=== PATIENT | female | born 1985 | race Caucasian/White ===

== ENCOUNTER 2019-08-10 21:36 | Emergency (ER) | payer MEDICAID ==
[~2019-08-10] VITALS: Ht 154.9 cm; Wt 56.7 kg
--- NOTE | 2019-08-10 22:00 | NUR ---
PT BIB SELF C/O HEADAHCE SINCE THIS MORNING (TOOK ADVIL 400MG WITHOUT RELIEF) EPIGASTRIC PAIN X4 HRS. PT AMBULATORY. NAD NOTED. RESP EVEN AND UNLABORED. PT ON MONITOR IN BED 2 WITH FRIEND AT BEDSIDE. WILL CONTINUE TO MONITOR.
--- NOTE | 2019-08-10 22:18 | NUR ---
BLOOD DRAWN AND GIVEN TO LAB
[2019-08-10 22:21] LABS: BASOPHILS # (AUTO) 0.1 /CMM (0.0-0.2); EOSINOPHILS % (AUTO) 1.7 % (0.0-6.0); HEMATOCRIT 32 % (33-45); LYMPHOCYTES # (AUTO) 2.3 /CMM (0.8-4.8); LYMPHOCYTES % (AUTO) 36.5 % (20.0-44.0); MEAN CORPUSCULAR HGB CONC 34 g/dl (31.0-36.0); MEAN CORPUSCULAR VOLUME 89 fL (82-100); MONOCYTES # (AUTO) 0.5 /CMM (0.1-1.30); MONOCYTES % (AUTO) 7.5 % (2.0-12.0); NEUTROPHILS # (AUTO) 3.4 /CMM (1.8-8.9); NEUTROPHILS % (AUTO) 53.3 % (43.0-81.0); PLATELET COUNT (AUTO) 249 /CMM (150-450); RED BLOOD CELL COUNT(AUTO) 3.62 MIL/uL (4.0-5.2); WHITE BLOOD COUNT (AUTO) 6.4 K/uL (4.3-11.0)
[2019-08-10 22:28] LABS: CALCIUM, SERUM 9.3 mg/dL (8.5-10.1); CREATININE 0.7 mg/dL (0.6-1.3)
[2019-08-10] MEDS ORDERED: KETOROLAC TROMETHAMINE INJ 30 MG/ML VIAL IV ONE (22:30)
[2019-08-10] MEDS ORDERED: PROCHLORPERAZINE EDISYLATE 10 MG/2 ML VIAL IVP ONE (22:30)
[2019-08-10] MEDS ORDERED: IV NS 0.9% 1,000 ML BAG IV ONE (22:30)
[2019-08-10] MEDS ORDERED: diphenhydrAMINE HCL 50 MG/ML VIAL IV ONE (22:30)
[2019-08-10 22:33] LABS: ALBUMIN 3.8 g/dL (3.4-5.0); BILIRUBIN,DIRECT 0.1 mg/dL (0.0-0.2); BILIRUBIN,TOTAL 0.2 mg/dL (0.2-1.0); TOTAL PROTEIN, SERUM 7.8 g/dL (6.4-8.2)
[2019-08-10] MEDS ORDERED: PROCHLORPERAZINE EDISYLATE 10 MG/2 ML VIAL ONE (22:41)
[2019-08-10] MEDS ORDERED: KETOROLAC TROMETHAMINE INJ 30 MG/ML VIAL ONE (22:41)
[2019-08-10] MEDS ORDERED: diphenhydrAMINE HCL 50 MG/ML VIAL ONE (22:41)
[2019-08-10 23:08] VITALS: BP 117/75
--- NOTE | 2019-08-10 23:08 | NUR ---
RADIOLOGY AT BEDSIDE FOR XRAY
--- NOTE | 2019-08-11 00:21 | NUR ---
IV removed. Catheter intact and site benign. Pressure and 4x4 applied to site. No bleeding noted.Patient discharged to home in stable condition. Written and verbal after care instructions given. Patient verbalizes understanding of instruction. PT AMBULATORY WITH STEADY GAIT.
== END 2019-08-11 00:22 | disposition home or self-care (01) ==
LOC: ER 21:39
DX: R51 Headache (principal); R10.13 Epigastric pain; D64.9 Anemia, unspecified
CPT/HCPCS: 36415; 71045; 80048; 80076; 83690; 84703; 85025; 96374; 96375; 99284; J0780; J1200; J1885; J7030

== ENCOUNTER 2021-10-25 15:33 | Emergency (ER) | payer MEDICAID ==
[~2021-10-25] VITALS: Ht 157.5 cm; Wt 56.7 kg
[2021-10-25 15:54] VITALS: BP 119/71
[2021-10-25] MEDS ORDERED: IBUP-1955 PO (16:03)
--- NOTE | 2021-10-25 16:11 | NUR ---
Patient discharged to home in stable condition. Written and verbal after care instructions given. Patient verbalizes understanding of instruction.
== END 2021-10-25 16:11 | disposition home or self-care (01) ==
LOC: ER 15:35
DX: S62.606A Fracture of unspecified phalanx of right little finger, initial encounter for closed fracture (principal); W01.0XXA Fall on same level from slipping, tripping and stumbling without subsequent striking against object, initial encounter; Y93.89 Activity, other specified; Y92.89 Other specified places as the place of occurrence of the external cause; Y99.8 Other external cause status

== ENCOUNTER 2021-11-15 16:51 | Emergency (ER) | payer MEDICAID ==
[~2021-11-15] VITALS: Ht 157.5 cm; Wt 56.7 kg
[~2021-11-15 16:51] MED LIST: IBUP-1955 PO
--- NOTE | 2021-11-15 17:29 | NUR ---
TO ER BED 18, C/O HEADACHE X 3 DAYS, TESTED (+) TO COVID 19 1 WEEK AGO, DENIES SOB, AAOX3, BREATHING EVEN AND NON LABORED, AWAITING MD WEN
[2021-11-15] MEDS ORDERED: KETOROLAC TROMETHAMINE INJ 30 MG/ML VIAL IV ONE (18:30)
[2021-11-15] MEDS ORDERED: IV NS 0.9% 1,000 ML BAG IV ONE (18:30)
[2021-11-15] MEDS ORDERED: diphenhydrAMINE HCL 50 MG/ML VIAL IV ONE (18:30)
[2021-11-15] MEDS ORDERED: METOCLOPRAMIDE HCL 10 MG/2 ML VIAL IV ONE (18:30)
[2021-11-15] MEDS ORDERED: diphenhydrAMINE HCL 50 MG/ML VIAL ONE (18:40)
--- NOTE | 2021-11-15 18:40 | NUR ---
SALINE LOCK ESTABLISHED AND BLOOD DRAWN
--- NOTE | 2021-11-15 18:40 | NUR ---
SALINE LOCK ESTABLISHED AND BLOOD DRAWN
[2021-11-15] MEDS ORDERED: KETOROLAC TROMETHAMINE 15 MG/ML VIAL ONE (18:41)
[2021-11-15] MEDS ORDERED: METOCLOPRAMIDE HCL 10 MG/2 ML VIAL ONE (18:41)
--- NOTE | 2021-11-15 18:45 | NUR ---
URINE COLLECTED AND SENT TO LAB
--- NOTE | 2021-11-15 18:45 | NUR ---
URINE COLLECTED AND SENT TO LAB
--- NOTE | 2021-11-15 20:05 | NUR ---
FOLLOWED UP WITH LAB. BLOOD STILL BEING IN PROCESS
--- NOTE | 2021-11-15 20:05 | NUR ---
FOLLOWED UP WITH LAB. BLOOD STILL BEING IN PROCESS
[2021-11-15 20:12] LABS: BILIRUBIN,URINE NEGATIVE (NEGATIVE); COLOR,URINE YELLOW (YELLOW); LEUKOCYTE ESTERASE ,URINE NEGATIVE (NEGATIVE); NITRITE, URINE NEGATIVE (NEGATIVE); PH,URINE 6.5 (5.0-8.0); PROTEIN,URINE NEGATIVE (NEGATIVE); UGLUCOSE NEGATIVE (NEGATIVE); UROBILINOGEN,URINE 0.2 EU/dL (0.2)
[2021-11-15 20:16] LABS: CALCIUM, SERUM 9.1 mg/dL (8.5-10.1); CREATININE 0.7 mg/dL (0.6-1.3); POTASSIUM 3.6 mmol/L (3.5-5.1)
--- NOTE | 2021-11-15 20:29 | NUR ---
Patient does not wish to proceed with medical care recommended by Dr. Smith. Patient given information related to possible complications, up to and including , which could occur as a result of leaving the hospital at this time. Patient verbalizes understanding of risks involved due to leaving against medical advice. Patient has signed AMA form.
[2021-11-15 20:55] LABS: BASOPHILS % (AUTO) 0.2 % (0.0-2.0); EOSINOPHILS % (AUTO) 1.1 % (0.0-6.0); HEMATOCRIT 33 % (33-45); HEMOGLOBIN 11.1 g/dL (11.5-14.8); LYMPHOCYTES # (AUTO) 1.7 K/uL (0.8-4.8); LYMPHOCYTES % (AUTO) 28.3 % (20.0-44.0); MEAN CORPUSCULAR HGB CONC 34 g/dl (31.0-36.0); MEAN CORPUSCULAR VOLUME 87 fL (82-100); MONOCYTES # (AUTO) 0.7 K/uL (0.1-1.30); MONOCYTES % (AUTO) 11.4 % (2.0-12.0); NEUTROPHILS # (AUTO) 3.5 K/uL (1.8-8.9); PLATELET COUNT (AUTO) 335 K/uL (150-450); RED BLOOD CELL COUNT(AUTO) 3.77 MIL/uL (4.0-5.2); WHITE BLOOD COUNT (AUTO) 5.9 K/uL (4.3-11.0)
[2021-11-15 22:00] LABS: RBC,URINE TOO NUMEROUS TO COUN /HPF (0-2); SQUAMOUS EPITHELIAL CELL,UR Few /HPF (None Seen); WBC,URINE 0-2 /HPF (0-3)
[2021-11-15 22:01] LABS: BACTERIA,URINE Few /HPF (None Seen); MUCUS,URINE Few /LPF (None Seen)
[2021-11-15 23:19] VITALS: BP 121/75
== END 2021-11-15 20:29 | disposition left against medical advice (07) ==
LOC: ER 16:57
DX: U07.1 COVID-19 (principal); G43.909 Migraine, unspecified, not intractable, without status migrainosus; R11.2 Nausea with vomiting, unspecified; M79.10 Myalgia, unspecified site
CPT/HCPCS: 36415; 80048; 81001; 84703; 85025; 96361; 96374; 96375; 99284; J1200; J1885; J2765; J7030